=== PATIENT | female | born 1995 | race Two or more races ===

== ENCOUNTER 2022-04-07 23:27 | Emergency (ER) | payer OTHER ==
[~2022-04-07] VITALS: Ht 160 cm; Wt 68.0 kg
[2022-04-07] MEDS ORDERED: PRENATABS RX T1 EACH (23:47)
== END 2022-04-08 04:36 ==
LOC: ER 23:27
DX: O20.8 Other hemorrhage in early pregnancy (principal); Z3A.01 Less than 8 weeks gestation of pregnancy